=== PATIENT | female | born 1960 | race Caucasian/White ===

== ENCOUNTER → 2016-08-27 | Outpatient (CLI) | payer BC ==
[~2016-08-27] MED LIST: CHOL1CAP57 PO; FENO48TA9 PO; METF500T PO; MULT-506 PO; OMEG10007 PO; OPTIRAY 320 IV PRN; SITA100T3 PO; VITACAP26 PO
--- NOTE | 2016-08-27 13:10 | DIAGNOSTIC IMAGING REPORT ---
CT OF THE CHEST WITH IV CONTRAST CLINICAL HISTORY: Appendiceal cancer. COMPARISON STUDY: CT of the chest abdomen and pelvis January 21, 2016. TECHNIQUE: Following IV administration of 93 mL of Optiray-320, helical axial images of the chest were obtained. Images were viewed in the axial, sagittal and coronal planes. IV contrast was administered without complication. FINDINGS: No enlarged axillary, mediastinal or hilar lymph nodes are present. The size of the heart is normal. There is a small hiatal hernia. There is no pericardial effusion. The central airways are patent. No pneumothorax or pleural effusion is present. There are no suspicious pulmonary nodules. A right hepatic dome lipoma is incidentally noted. There is fatty infiltration of the liver. The abdomen and pelvis will be reported separately. IMPRESSION: No evidence of metastatic disease within the chest. Electronically signed by: Anthony James M.D. 08/27/2016 1:08 PM Dictated Date/Time: 08/27/2016 1:04 PM
--- NOTE | 2016-08-27 13:17 | DIAGNOSTIC IMAGING REPORT ---
ABDOMEN AND PELVIS CT WITH IV AND ORAL CONTRAST CT DOSE: 1478.21 mGy.cm HISTORY: Appendiceal cancer. TECHNIQUE: Multiaxial CT images of the abdomen and pelvis were performed following the use of intravenous and oral contrast. COMPARISON STUDY: Outside hospital abdomen and pelvis CT 01/21/2016. FINDINGS: The lung bases are clear. No suspicious lytic or blastic osseous lesions. Tiny hiatus hernia. There is a large gallstone. Stable 16 mm fatty lesion within the right hepatic dome. This likely represents a lipoma. No suspicious hepatic lesions identified. There are fatty changes within the liver. The spleen, adrenal glands, right kidney, and pancreas are unremarkable. There is a 4 mm hypodense stable lesion within the upper pole of the left kidney. This is too small to characterize. No retroperitoneal lymphadenopathy. The uterus and bilateral adnexa are unremarkable. Normal bladder. No pelvic fluid. No bowel wall thickening or obstruction. Moderate stool throughout the colon. Suggestion of a prior ileocecectomy. Therefore, the appendix is surgically absent. IMPRESSION: 1. No evidence for metastatic disease within the abdomen or pelvis. 2. Cholelithiasis. 3. Stable 16 mm fatty lesion within the right hepatic dome. This likely represents a lipoma. 4. Prior ileocecectomy. Electronically signed by: Alexsander Mckeon M.D. 08/27/2016 1:15 PM Dictated Date/Time: 08/27/2016 1:05 PM
== END | disposition home or self-care (01) ==
LOC: C.CTS 11:36
PROVIDERS: ATTEND Nurse Practitioner Family
DX: C18.1 Malignant neoplasm of appendix (principal); K80.20 Calculus of gallbladder without cholecystitis without obstruction; K76.9 Liver disease, unspecified

== ENCOUNTER → 2017-09-17 | Outpatient (CLI) | payer BC ==
[2017-09-17 15:16] LABS: BASO % 0.2 %; BASO ABS # 0.01 K/uL (0-0.2); EOS ABS # 0.13 K/uL (0-0.5); HEMATOCRIT 42.3 % (37-47); IG# 0.02 K/uL (0.00-0.02); LYMPH % 35.4 %; LYMPH ABS # 2.27 K/uL (1.2-3.4); MEAN CELL VOLUME 84.6 fL (80-100); MEAN CORPUSCULAR HGB CONC 35.5 g/dl (32-36); MEAN PLATELET VOLUME 8.8 fL (7.4-10.4); MONO % 7.6 %; MONO ABS # 0.49 K/uL (0.11-0.59); NEUT % 54.5 %; PLATELET COUNT 269 K/uL (130-400); RED CELL DISTRIBUTION WIDTH CV 13.1 % (11.5-14.5); RED CELL DISTRIBUTION WIDTH SD 39.6 fL (36.4-46.3); WHITE BLOOD COUNT 6.42 K/uL (4.8-10.8)
[2017-09-17 15:38] LABS: ALBUMIN 3.9 gm/dl (3.4-5.0); ALT/SGPT 65 U/L (12-78); BLOOD UREA NITROGEN 10 mg/dl (7-18); CALCIUM 9.8 mg/dl (8.5-10.1); CARBON DIOXIDE 27 mmol/L (21-32); CREATININE 1.05 mg/dl (0.60-1.20); GLUCOSE 120 mg/dl (70-99); POTASSIUM 3.9 mmol/L (3.5-5.1); SODIUM 139 mmol/L (136-145)
[2017-09-17 15:42] LABS: ALKALINE PHOSPHATASE 61 U/L (45-117); AST/SGOT 38 U/L (15-37); TOTAL PROTEIN 7.8 gm/dl (6.4-8.2)
--- NOTE | 2017-09-17 16:14 | DIAGNOSTIC IMAGING REPORT ---
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 A dose lowering technique was utilized adhering to the principles of ALARA. COMPARISON STUDY: 08/27/2016 FINDINGS: The lung bases are clear. The liver, spleen, gallbladder, pancreas, kidneys, and adrenal glands are within normal limits. No bowel wall thickening or obstruction. The pelvic organs are unremarkable. No suspicious lytic or blastic osseous lesions. Operative changes of the right lower quadrant are unchanged. Lipoma of the right hepatic dome is unchanged. There is no significant adenopathy of the abdomen and pelvis or inguinal region. Bowel pattern is nonobstructive. Mild degenerative changes of the osseous structures with no lytic or blastic process. Note is made of gallstones which fills significant component of the gallbladder lumen at the level of contrast to better fundus. This is unchanged. IMPRESSION: 1. Gallstones. 2. Lipoma right hepatic dome 3. Stable postoperative changes right lower quadrant. 4. This study is unchanged compared to the prior exam of 08/27/2016 The above report was generated using voice recognition software. It may contain grammatical, syntax or spelling errors. Electronically signed by: Edmond Walton M.D. 09/17/2017 4:13 PM Dictated Date/Time: 09/17/2017 4:08 PM
--- NOTE | 2017-09-17 16:15 | DIAGNOSTIC IMAGING REPORT ---
CHEST CT WITH CONTRAST CT DOSE: 1690.31 mGycm HISTORY: Appendiceal cancer. Follow-up. TECHNIQUE: Multiaxial CT images of the chest were performed following the intravenous administration of contrast. A dose lowering technique was utilized adhering to the principles of ALARA. COMPARISON: Chest CT 08/27/2016. FINDINGS: The lungs are clear. The mediastinal vascular structures are within normal limits. No mediastinal or hilar lymphadenopathy. No pleural effusion or pneumothorax. Limited views of the upper abdomen demonstrate a normal spleen. Hepatic steatosis. Stable lipoma within the right hepatic dome. IMPRESSION: No evidence for metastatic disease within the chest. Electronically signed by: Alexsander Mckeon M.D. 09/17/2017 4:14 PM Dictated Date/Time: 09/17/2017 4:08 PM
== END | disposition home or self-care (01) ==
LOC: C.CTS 14:36
PROVIDERS: ATTEND Nurse Practitioner Family
DX: K80.20 Calculus of gallbladder without cholecystitis without obstruction (principal); D17.79 Benign lipomatous neoplasm of other sites; C18.1 Malignant neoplasm of appendix

== ENCOUNTER → 2018-03-26 | Outpatient (CLI) | payer BC ==
[~2018-03-26] MED LIST changes: -OPTIRAY 320 IV PRN
[2018-03-26 12:53] LABS: BASO % 0.2 %; BASO ABS # 0.01 K/uL (0-0.2); EOS % 1.9 %; EOS ABS # 0.09 K/uL (0-0.5); HEMATOCRIT 43.1 % (37-47); HEMOGLOBIN 14.4 g/dL (12.0-16.0); IG# 0.01 K/uL (0.00-0.02); LYMPH ABS # 1.62 K/uL (1.2-3.4); MEAN CELL VOLUME 88.1 fL (80-100); MEAN CORPUSCULAR HEMOGLOBIN 29.4 pg (25-34); MEAN CORPUSCULAR HGB CONC 33.4 g/dl (32-36); MEAN PLATELET VOLUME 9.7 fL (7.4-10.4); MONO % 8.4 %; NEUT % 55.3 %; NEUT ABS # 2.64 K/uL (1.4-6.5); PLATELET COUNT 281 K/uL (130-400); RED CELL DISTRIBUTION WIDTH CV 13.1 % (11.5-14.5); RED CELL DISTRIBUTION WIDTH SD 41.9 fL (36.4-46.3); WHITE BLOOD COUNT 4.77 K/uL (4.8-10.8)
[2018-03-26 13:07] LABS: ALBUMIN 3.5 gm/dl (3.4-5.0); ALKALINE PHOSPHATASE 61 U/L (45-117); ALT/SGPT 66 U/L (12-78); AST/SGOT 42 U/L (15-37); BLOOD UREA NITROGEN 11 mg/dl (7-18); CALCIUM 9.4 mg/dl (8.5-10.1); CARBON DIOXIDE 28 mmol/L (21-32); CREATININE 1.01 mg/dl (0.60-1.20); GLUCOSE 197 mg/dl (70-99); POTASSIUM 3.8 mmol/L (3.5-5.1); SODIUM 141 mmol/L (136-145); TOTAL PROTEIN 7.1 gm/dl (6.4-8.2)
== END | disposition home or self-care (01) ==
LOC: C.LAB 10:24
PROVIDERS: ATTEND Nurse Practitioner Family
DX: C18.1 Malignant neoplasm of appendix (principal)